=== PATIENT | female | born 1930 | race Caucasian/White ===

== ENCOUNTER → 2016-12-30 | Outpatient (CLI) | payer MEDICARE ==
[2016-07-07 17:04] VITALS: BP 180/81
[~2016-12-30] MED LIST: AZIT250T PO; DOXY100C2 PO; PRED20TA PO
--- NOTE | 2016-12-30 10:41 | CARD ---
APPROVED REPORT EXAM: Two-dimensional and M-mode echocardiogram with Doppler and color Doppler. Other Information Quality : Good INDICATION Dyspnea 2D DIMENSIONS RVDd2.0 (2.9-3.5cm)Left Atrium(2D)3.1 (1.6-4.0cm) IVSd0.8 (0.7-1.1cm)Aortic Root(2D)3.3 (2.0-3.7cm) LVDd4.7 (3.9-5.9cm)LVOT Diameter2.0 (1.8-2.4cm) PWd0.7 (0.7-1.1cm)LVDs3.0 (2.5-4.0cm) FS (%) 33.0 %SV66.4 ml Aortic Valve AoV Peak Giovanni.118.1cm/sAoV VTI22.2cm AO Peak GR.5.6mmHgLVOT Peak Giovanni.109.3cm/s LVOT VTI 22.09cmAO Mean GR.3mmHg SUSAN (VMAX)2.10af3WZU (VTI)3.19cm2 AI P 1/2 Edkd583la Mitral Valve MV E Dwrllnig00.7cm/sMV DECEL NAGQ304nn MV A Jzbqacul90.7cm/sMV QJL67pq E/A Ratio0.7MVA (PHT)2.54cm2 TDI E/Lateral E'15.3E/Medial E'12.9 Tricuspid Valve TR P. Iojvvaky046tm/sRAP ILTKUUFY8psZv TR Peak Gr.79edIfOTLO91mkZl Pulmonary Vein S1 Nbhhyfdu11.2cm/sD2 Nmusuzgq18.4cm/s PVa kjolzrbi211hsjf LEFT VENTRICLE The left ventricle is normal size. Mild proximal septal thickening is noted. The left ventricular sys tolic function is normal and the ejection fraction is within normal range. The Ejection Fraction is 6 0-65%. There is normal LV segmental wall motion. Transmitral Doppler flow pattern is Grade I-abnormal relaxation pattern. RIGHT VENTRICLE The right ventricle is normal size. The right ventricular systolic function is normal. ATRIA The left atrium size is normal. The right atrium size is normal. The interatrial septum is intact wit h no evidence for an atrial septal defect or patent foramen ovale as noted on 2-D or Doppler imaging. AORTIC VALVE The aortic valve is calcified but opens well. Doppler and Color Flow revealed mild aortic regurgitati on. There is no significant aortic valvular stenosis. MITRAL VALVE The mitral valve is normal in structure and function. There is no evidence of mitral valve prolapse. There is no mitral valve stenosis. Doppler and Color-flow revealed trace mitral regurgitation. TRICUSPID VALVE The tricuspid valve is normal in structure and function. Doppler and Color Flow revealed trace to mil d tricuspid regurgitation. The PA pressure was estimated at 27 mmHg. There is no tricuspid valve sten osis. PULMONIC VALVE The pulmonary valve is normal in structure and function. Doppler and Color Flow revealed trace pulmon ic valvular regurgitation. There is no pulmonic valvular stenosis. GREAT VESSELS The aortic root is normal in size. The ascending aorta is normal in size. The IVC is normal in size a nd collapses >50% with inspiration. PERICARDIAL EFFUSION There is no evidence of significant pericardial effusion. Critical Notification Critical Value: No <Conclusion> The left ventricle is normal size. The left ventricular systolic function is normal and the ejection fraction is within normal range. The Ejection Fraction is 60-65%. There is no significant aortic valvular stenosis. Doppler and Color Flow revealed mild aortic regurgitation. Doppler and Color-flow revealed trace mitral regurgitation. Doppler and Color Flow revealed trace to mild tricuspid regurgitation. The PA pressure was estimated at 27 mmHg. There is no evidence of significant pericardial effusion.
== END | disposition home or self-care (01) ==
LOC: ECHO 08:39
PROVIDERS: ATTEND Internal Medicine Critical Care Medicine
DX: I35.1 Nonrheumatic aortic (valve) insufficiency (principal); I34.0 Nonrheumatic mitral (valve) insufficiency; I07.1 Rheumatic tricuspid insufficiency
CPT/HCPCS: 93306

== ENCOUNTER 2019-06-13 09:16 | Emergency (ER) | payer BC ==
[~2019-06-13] VITALS: Ht 165.1 cm; Wt 49.4 kg
[~2019-06-13 09:16] MED LIST changes: +ALEN35TA6 PO; +ASPI81TA59 PO; +CIPR250T30 PO; +DONE5TAB7 PO; +LISI2.5T PO; +MONT10TA49 PO; +MULT-245 PO; +OMEG1CAP6 PO; +TRAZ-118 PO
[2019-06-13 09:32] VITALS: BP 142/63
--- NOTE | 2019-06-13 09:37 | PHYS DOC ---
Past Medical History Past Medical History: COPD, Dementia, Other Additional Past Medical Histor: PELVIS FX. YEARS AGO Past Surgical History: Appendectomy, Cholecystectomy, Hysterectomy, Tonsillectomy Alcohol Use: None Drug Use: None Adult General Chief Complaint Chief Complaint: ANKLE PROBLEM HPI HPI Patient is a 88 year old female with history of COPD, dementia, who presents to the ED today with the son a son reports patient fell down yesterday closing a window. Patient is complaining of right ankle pain, patient rates as "small amount" describes it as sharp and intermittent worse on weight bearing. Son denies patient having any loss of consciousness when she fell Review of Systems Review of Systems Constitutional: Denies fever or chills [] Musculoskeletal: Reports right ankle pain. Integument: Denies rash or skin lesions [] Neurologic: Denies headache, focal weakness or sensory changes [] All other systems were reviewed and found to be within normal limits, except as documented in this note. Allergies Allergies Allergies Coded Allergies Type Severity Reaction Last Updated Verified No Known Drug Allergies 07/07/16 No Physical Exam Physical Exam Constitutional: Well developed, well nourished, no acute distress, non-toxic appearance. [] Skin: Warm, dry, no erythema, no rash. [] Back: No tenderness, no CVA tenderness. [] Extremities: Right lower extremity with no obvious deformity. Bruising noted on the right ventral foot along the third and fourth metatarsals. No tenderness on palpation of the right ankle and foot. Full range of motion to the right ankle foot and toes. +2 right pedal pulse. Cap refill less than 2 seconds the right toes. Sensation intact to the right lower extremity. Neurologic: Alert and oriented X 3, normal motor function, normal sensory function, no focal deficits noted. [] Psychologic: Affect normal, judgement normal, mood normal. [] Current Patient Data Vital Signs Vital Signs Date Time Temp Pulse Resp B/P (MAP) Pulse Ox O2 Delivery O2 Flow Rate FiO2 06/13/19 09:32 98.3 87 18 142/63 (89) 95 Room Air 98.3 EKG EKG [] Radiology/Procedures Radiology/Procedures []PROCEDURE: ANKLE RIGHT 3V Indications: Fall and pain anterior ankle region. Three-view right ankle study: No acute fracture or dislocation or lytic process is evident. The mortise ankle joint is intact. Three-view right foot study: No acute fracture or dislocation or lytic process is seen. Alignment is normal. Small bunion is seen. 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 Small plantar spur of the calcaneus is evident. IMPRESSION: No acute fracture. Electronically signed by: Lowell Lancaster MD (06/13/2019 10:11 AM) [id number] DICTATED and SIGNED BY: LOWELL LANCASTER MD DATE: 06/13/19 101 PROCEDURE: FOOT RIGHT 3V Indications: Fall and pain anterior ankle region. Three-view right ankle study: No acute fracture or dislocation or lytic process is evident. The mortise ankle joint is intact. Three-view right foot study: No acute fracture or dislocation or lytic process is seen. Alignment is normal. Small bunion is seen. 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 Small plantar spur of the calcaneus is evident. IMPRESSION: No acute fracture. Electronically signed by: Lowell Lancaster MD (06/13/2019 10:11 AM) [id number] DICTATED and SIGNED BY: LOWELL LANCASTER MD DATE: 06/13/19 1011 Course & Med Decision Making Course & Med Decision Making Pertinent Labs and Imaging studies reviewed. (See chart for details) This is a 88-year-old female patient presented to the ED today with right ankle pain that began yesterday after falling. Right ankle and right foot x-rays interpreted by radiologist are negative for any acute findings. Mega bandage provided. Ice elevation encouraged. Voltaren cream provided. Discharged to home. Follow-up with orthopedic doctor in one week if pain persists Dragon Disclaimer Dragon Disclaimer This electronic medical record was generated, in whole or in part, using a voice recognition dictation system. Departure Departure Impression: Primary Impression: Right ankle sprain Disposition: HOME, SELF-CARE Condition: STABLE Referrals: DANII DUDLEY MD (PCP) CONSTANTINE IVERSON MD Follow-up in 1-2 weeks Patient Instructions: Ankle Sprain, Lcap-og-Nrfu Additional Instructions: You were evaluated in the emergency room for right ankle sprain. Try to ice and elevate the extremity. You can wrap the right ankle with the Mega bandage provided as needed and tolerated. Use the medication provided as needed for pain. Follow-up with your own doctor the provided orthopedic doctor in 1-2 weeks. Scripts Diclofenac Sodium (VOLTAREN) 100 Gm Gel..gram. 1 GM TP QID, #100 GM 2 Refills Prov: RICHI ALMONTE APRN 06/13/19 Problem Qualifiers Primary Impression: Right ankle sprain Encounter type: initial encounter Involved ligament of ankle: unspecified ligament Qualified Codes: S93.401A - Sprain of unspecified ligament of right ankle, initial encounter RICHI ALMONTE APRN Jun 13, 2019 09:37
--- NOTE | 2019-06-13 10:15 | RAD ---
Indications: Fall and pain anterior ankle region. Three-view right ankle study: No acute fracture or dislocation or lytic process is evident. The mortise ankle joint is intact. Three-view right foot study: No acute fracture or dislocation or lytic process is seen. Alignment is normal. Small bunion is seen. 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 Small plantar spur of the calcaneus is evident. IMPRESSION: No acute fracture. Electronically signed by: Peyman Lancaster MD (06/13/2019 10:11 AM) [id number]
[2019-06-13] MEDS ORDERED: DICL100G18 TP (10:24)
== END 2019-06-13 10:39 | disposition home or self-care (01) ==
LOC: ER 09:16
DX: S93.491A Sprain of other ligament of right ankle, initial encounter (principal); J44.9 Chronic obstructive pulmonary disease, unspecified; Z90.89 Acquired absence of other organs; Z90.49 Acquired absence of other specified parts of digestive tract; Z90.710 Acquired absence of both cervix and uterus; W18.39XA Other fall on same level, initial encounter; Y93.89 Activity, other specified; Y92.89 Other specified places as the place of occurrence of the external cause; Y99.8 Other external cause status
CPT/HCPCS: 73610; 73630; 99284